=== PATIENT | male | born 2000 | race Caucasian/White ===

== ENCOUNTER 2024-07-10 11:34 | Outpatient (REF) | payer OTHER, SELFPAY ==
[2024-07-10 13:18] LABS: MANUAL DIFF FLAG NO
[2024-07-10 13:44] LABS: Basophils Percent Auto 0.3 % (0-2); Eosinophils Percent Auto 0.1 % (0-4); Hematocrit 47.2 % (42.0-52.0); Hemoglobin 15.9 g/dl (14.0-18.0); Imm Gran Abs Auto 0.03 X10*3/uL (0.00-0.03); Imm Gran Pct Auto 0.4 % (0.0-0.4); Lymphocytes Absolute Auto 1.2 X10*3/uL (1.2-4.9); Lymphocytes Percent Auto 16.7 % (20-40); Mean Corpuscular HGB Conc 33.7 g/dl (31.0-36.0); Mean Corpuscular Hemoglobin 29.8 pg (27.0-33.0); Mean Corpuscular Volume 88.6 fL (80.0-98.0); Mean Platelet Volume 9.7 fL (9.4-12.4); Monocytes Absolute Auto 0.4 X10*3/uL (0.1-1.2); Neutrophils Absolute Auto 5.6 x10*3/uL (2.0-8.3); Neutrophils Percent Auto 77.5 % (45-73); Platelet Count 260 X10*3/uL (160-400); Red Blood Count 5.33 X10*6/uL (4.60-5.80); Red Cell Distribution Width 11.6 % (11.0-16.0); White Blood Count 7.3 X10*3/uL (4.8-10.8)
[2024-07-10 13:57] LABS: Alanine Aminotransferase 18 U/L (0-40); Alkaline Phosphatase 61 U/L (39-117); Anion Gap 11 (12-20); Aspartate Amino Transferase 20 U/L (5-37); Bilirubin Total 0.5 mg/dL (0.0-1.0); Blood Urea Nitrogen 8 mg/dL (9-16); Calcium 9.7 mg/dL (8.4-10.2); Carbon Dioxide 29 mmol/L (22-29); Chloride 106 mmol/L (96-108); Estimated Glomerular Filt Rate > 60; Glucose Random 102 mg/dL (60-115); Potassium 4.2 mmol/L (3.3-5.1); Sodium 142 mmol/L (135-145); Total Protein 8.2 g/dL (6.5-8.0)
[2024-07-10 14:05] LABS: Syphilis Screen Nonreactive (Nonreactive)
[2024-07-10 14:08] LABS: TSH reflex Free T4 0.84 uIU/mL (0.32-4.0)
[2024-07-10 14:09] LABS: HBS Num1 2.63 mIU/mL (0-7.99); HBc Num1 0.16 S/CO (0.00-0.79); HBsAGNum1 0.41 S/CO (0.00-0.99); HIV AB/AG Nonreactive (Nonreactive); Hepatitis A Antibody IgM 0.16 Index (0-0.79); Hepatitis B Core Antibody Nonreactive (Nonreactive); Hepatitis B Surface Antigen Negative (Negative); ~HepC Num1 0.14 S/CO (0.00-0.79); ~Hepatitis A Antibody IgM Nonreactive (Nonreactive); ~Hepatitis B Surface Antibody NONREACTIVE (Nonreactive); ~Hepatitis C Antibody Nonreactive (Nonreactive)
[2024-07-13 16:24] LABS: TS Negative Control Passed; TS Panel A 0; TS Panel B 0; TS Positive Control Passed; TSpotTB Negative (Negative)
== END 2024-07-10 11:35 | disposition home or self-care (01) ==
LOC: HO.HHCL 11:34
PROVIDERS: Visit Provider Internal Medicine
DX: Z00.00 Encounter for general adult medical examination without abnormal findings (principal); F31.61 Bipolar disorder, current episode mixed, mild
CPT/HCPCS: 36415; 80053; 84443; 85025; 86481; 86704; 86706; 86709; 86780; 86803; 87340; 87389

== ENCOUNTER 2025-02-20 12:24 | Outpatient (REF) | payer MEDICAID, SELFPAY ==
--- OUTSIDE RECORDS SUMMARY | 2025-02-20 12:27 | XMS_ITS | Encounter Summary ---
Author Organization [employer] Address [address] [place] [address] [address] [place] [address] Care Team Providers Care Purification Supervisor Name Role Phone Dorothy Cueva MD Primary Care Provider + Encounter Details Date Type Department Care Team ([facility] Contact Info) Description 02/19/2025 Telephone [facility] MEDICINE [address], [place] [phone] Dorothy Cueva MD [address] [place] [address] Social History Tobacco Use Types Packs/Day Years Used Date Smoking Tobacco: Never Passive Smoke Exposure: Never Smokeless Tobacco: Never Alcohol Use Standard Drinks/Week Comments Not Currently 0 (1 standard drink = 0.6 oz pur e alcohol) Depression Answer Date Recorded Patient Health Questionnaire-9 Score 14 02/20/2025 Patient Health Questionnaire-9 Score 14 02/20/2025 Last PHQ-9: Questionnaire Data Not on file 0 02/20/2025 Depression Answer Date Recorded Patient Health Questionnaire-2 Score 3 02/20/2025 Sex and Gender Information Value Date Recorded Sex Assigned at Male 06/09/2024 11:25 AM EST Legal Sex Male 10:32 AM EST Gender Identity Male 06/09/2024 11:25 AM EST Sexual Orientation Straight 06/09/2024 10 :20 AM EST documented as of this encounter Miscellaneous Notes * Telephone Encounter - Claudia Weaver RN - 02/19/2025 9:41 AM EDT RN received incoming call Huong in reporting the patient has been experiencing increased depression s/s despite medication compliance with Abilify and Inderal (currently taking twice daily). Huong reports the increased s/s have happened gradually however patient has reported difficulty at his last 2 sessions. Huong is requesting an appointment with PCP to discuss medications and possibly anincrease in dosage until patient is established with a new psychiatrist. RN scheduled patient for an appointment on 02/20/25 at noon, patient agreed to appointment date and time. Patient to f/u PRN. documented in this encounter Plan of Treatment Not on file documented as of this encounter Visit Diagnoses Not on filedocumented in this encounter Additional Health Concerns Assessment Noted Time PHQ-9 Depression Total Score: 12 024 12:19 PM EST documented as of this encounter Care Teams Purification Supervisor Relationship Specialty Start Date End Date Dorothy Cueva MD [address] [place] [address] PCP - General Internal Medicine 06/09/24 documented as of this encounter
[2025-02-20 15:03] LABS: Hemoglobin A1C 145.1987 umol/L; Total Hemoglobin (HGBA1C) 4178.1264 umol/L
== END 2025-02-20 12:25 | disposition home or self-care (01) ==
LOC: HO.HHCL 12:24
PROVIDERS: PCP Internal Medicine; Visit Provider Internal Medicine
DX: F41.9 Anxiety disorder, unspecified (principal)
CPT/HCPCS: 36415; 82947; 83036; 84443

== ENCOUNTER 2025-03-10 11:45 | Outpatient (REF) | payer MEDICAID, SELFPAY ==
--- NOTE | ~2025-03-10 | XR_ITS ---
EXAMINATION: XR CHEST CLINICAL INFORMATION: Sudden onset of chest pain and DALE since yesterday COMPARISON: None available. TECHNIQUE: 2 views of the chest were obtained. FINDINGS: There is a large right pneumothorax with near total atelectasis of the right lung. The mediastinum is not shifted to the left. The left lung is clear and well expanded. XR/XR chest 2V IMPRESSION: Large right pneumothorax with near total atelectasis of the right lung. I called the result to Dr. Garret Fowler at 12:10 pm ET, and he stated that the patient is being transferred to the emergency department Electronically signed by: Marino Valle MD 03/10/2025 12:09 PM EDT
== END 2025-03-10 11:46 | disposition home or self-care (01) ==
LOC: HO.HHCX 11:45
PROVIDERS: Visit Provider Internal Medicine Geriatric Medicine
DX: R07.1 Chest pain on breathing (principal); R06.09 Other forms of dyspnea
CPT/HCPCS: 71046

== ENCOUNTER → 2025-03-10 11:46 | Outpatient (BNV) | payer MEDICAID, SELFPAY | PROVIDERS: Visit Provider Radiology Diagnostic Radiology | DX: J98.11 Atelectasis (principal) | CPT/HCPCS: 71046 ==